=== PATIENT | female | born 1990 | race American Indian/Alaskan Native ===

== ENCOUNTER 2017-09-12 10:40 | Emergency (ER) | payer MEDICAID ==
--- NOTE | 2017-09-12 11:03 | Emergency Department Report ---
Chief Complaint: Abdominal Pain Stated Complaint: COLD AND ABD PAIN Time Seen by Provider: 09/12/17 11:00 - HPI History of Present Illness: 27-year-old with no prior medical history presents with lower pelvic, constant, nonradiating, 5/10 intensity pain. She reports last menstrual period was beginning of July 2017 blood pressure about the date. She denies taking medication. She denies fevers/chills/nausea/vomiting/abdominal pain/chest pain/shortness of breath sounds vaginal bleeding, dysuria, vaginal discharge. - ROS Review of Systems: As noted in HPI - Exam Vital Signs: Vital Signs 09/12/17 10:53 Temperature 97.3 F L Pulse Rate 86 Respiratory 16 Rate Blood Pressure 107/70 O2 Sat by Pulse 100 Oximetry Physical Exam: GENERAL: Alert and oriented x3, no apparent distress, Normal Gait, atraumatic. ABDOMEN: No organomegaly was noted,Positive bowel sounds, soft, and non- distended. Nontender to palpation on all Quadrants, NO CVA tenderness. BACK: Full range of motion, no spinal tenderness, nontender to palpation. SKIN: Warm and dry, No lesions, No ulceration or induration present. MSE screening note: Focused history and physical exam performed. Due to findings the following was ordered: ED Medical Decision Making - Medical Decision Making 19-year-old female in no acute distress Abdominal pain protocol ordered. Patient was seen by ED physician. ED Disposition for MSE Condition: Stable Instructions: Abdominal Pain (ED)
[2017-09-12 12:01] LABS: Basophils % (Auto) 0.6 % (0.0-1.8); Eosinophils % (Auto) 3.8 % (0.0-4.3); Hemoglobin 12.1 gm/dl (10.1-14.3); Mean Corpuscular HGB Conc 34 % (30-34); Mean Corpuscular Hemoglobin 32 pg (28-32); Mean Corpuscular Volume 94 fl (79-97); Platelet Count 213 K/mm3 (140-440); Red Blood Count 3.83 M/mm3 (3.65-5.03); Red Cell Distribution Width 13.2 % (13.2-15.2); White Blood Count 9.9 K/mm3 (4.5-11.0)
[2017-09-12 12:04] LABS: BUN/Creatinine Ratio 18; Blood Urea Nitrogen 7 mg/dL (7-17); Calcium 8.4 mg/dL (8.4-10.2); Carbon Dioxide 27 mmol/L (22-30); Glucose 89 mg/dL (65-100)
[2017-09-12 12:05] LABS: Alanine Aminotransferase 8 units/L (7-56); Albumin 3.7 g/dL (3.9-5); Albumin/Globulin Ratio 1.2 %; Alkaline Phosphatase 50 units/L (35-129); Anion Gap 13 mmol/L; Chloride 103.6 mmol/L (98-107); Lipase 20 units/L (13-60); Potassium 3.8 mmol/L (3.6-5.0); Sodium 140 mmol/L (137-145); Total Protein 6.8 g/dL (6.3-8.2)
[2017-09-12 12:14] LABS: Bilirubin,Urine NEG (Negative); Blood,Urine NEG (Negative); Ketones,Urine NEG (Negative); Leukocyte Esterase,Urine TR (Negative); Mucus,Urine FEW /HPF; Nitrite,Urine NEG (Negative)
--- NOTE | 2017-09-12 13:00 | Emergency Department Report ---
ED Abdominal Pain HPI - General Chief Complaint: Abdominal Pain Stated Complaint: COLD AND ABD PAIN Time Seen by Provider: 09/12/17 11:00 Source: patient Mode of arrival: Ambulatory Limitations: No Limitations - History of Present Illness Initial Comments: 27-year-old female with a past medical history of asthma presents to the hospital complaining of cold symptoms and suprapubic pain. Patient has had intermittent suprapubic pain described as sharp and feels like knots for the past 3 weeks. Pain is intermittent, moderate with no aggravating or alleviating factors. She denies dysuria, vaginal bleeding, or vaginal discharge. She is sexually active with one partner and uses condoms on occasion. Patient also complains of URI symptoms for 3 days which include dry cough, nasal congestion, and green nasal discharge. No facial pain, fever, shortness of breath, or chest pain reported. LMP early July documented at . Patient has 4 previous and has 4 children with no history of miscarriages, is topless, or voice Severity scale (0 -10): 0 - Related Data Previous Rx's Medication Instructions Recorded Last Taken Type Cyclobenzaprine [Flexeril 10mg] 10 mg PO TID PRN #10 tablet 12/28/14 Unknown Rx Ibuprofen [Motrin] 600 mg PO Q8H PRN #20 tablet 12/28/14 Unknown Rx Vit Calc,Iron,Folic 1 each PO DAILY #30 tablet 09/12/17 Unknown Rx [ Vitamins] Sodium Chloride [Saline Nasal 1 - 2 spray NS PRN PRN #1 bottle 09/12/17 Unknown Rx [place]] guaiFENesin [Robitussin] 200 mg PO Q6HR PRN #30 tablet 09/12/17 Unknown Rx metroNIDAZOLE [Flagyl] 500 mg PO Q12HR #14 tab 09/12/17 Unknown Rx Allergies Allergy/AdvReac Type Severity Reaction Status Date / Time Penicillins Allergy Anaphylaxis Verified 10/02/14 00:57 ED Review of Systems ROS: Stated complaint: COLD AND ABD PAIN Other details as noted in HPI Comment: All other systems reviewed and negative Other: Constitutional: No fevers chills Eyes: No eye pain visual changes ENT: No ear pain or throat pain Neck: Denies pain Respiratory: Denies cough wheezing shortness of breath Cardiovascular: Denies chest pain, palpitations, syncope GI: As per HPI : Denies dysuria Musculoskeletal: Denies back pain, joint swelling Skin: Denies rash, lesions, erythema Neurologic: Denies headache, numbness, weakness Psychiatric: Denies suicidal ideation, hallucinations ED Past Medical Hx - Past Medical History Previous Medical History?: Yes Hx Asthma: Yes - Surgical History Past Surgical History?: No - Social History Smoking Status: Current Every Day Smoker Substance Use Type: None - Medications Home Medications: Home Medications Medication Instructions Recorded Confirmed Last Taken Type Cyclobenzaprine [Flexeril 10mg] 10 mg PO TID PRN #10 tablet 12/28/14 Unknown Rx Ibuprofen [Motrin] 600 mg PO Q8H PRN #20 tablet 12/28/14 Unknown Rx Vit Calc,Iron,Folic 1 each PO DAILY #30 tablet 09/12/17 Unknown Rx [ Vitamins] Sodium Chloride [Saline Nasal 1 - 2 spray NS PRN PRN #1 bottle 09/12/17 Unknown Rx [place]] guaiFENesin [Robitussin] 200 mg PO Q6HR PRN #30 tablet 09/12/17 Unknown Rx metroNIDAZOLE [Flagyl] 500 mg PO Q12HR #14 tab 09/12/17 Unknown Rx ED Physical Exam - General Limitations: No Limitations - Other Other exam information: General: No limitations, patient is alert in no acute distress Head exam: Atraumatic, normocephalic Eyes exam: Normal appearance ENT: Moist mucous membrane, normal oropharynx Neck exam: Normal inspection, full range of motion, no meningismus nontender Respiratory exam: Clear to auscultation bilateral, no wheezes, rales, crackles Cardiovascular: Normal rate and rhythm, normal heart sounds Abdomen: Soft, nondistended, and nontender, with normal bowel sounds, no rebound, or guarding : Mild white vaginal discharge, no CMT or adnexal tenderness Extremity: Full range of motion normal inspection no deformity Back: Normal Inspection, full range of motion, no tenderness Neurologic: Alert, oriented x3, cranial nerves intact, no motor or sensory deficit Psychiatric: normal affect, normal mood Skin: Warm, dry, intact ED Course Vital Signs 09/12/17 09/12/17 09/12/17 10:53 12:08 12:10 Temperature 97.3 F L Pulse Rate 86 72 Respiratory 16 11 L 14 Rate Blood Pressure 107/70 O2 Sat by Pulse 100 100 100 Oximetry ED Medical Decision Making - Lab Data Result diagrams: 09/12/17:15 09/12/17 11:15 Lab Results 09/12/17 09/12/17 09/12/17 Range/Units 11:15 11:15 11:15 WBC 9.9 (4.5-11.0) K/mm3 RBC 3.83 (3.65-5.03) M/mm3 Hgb 12.1 (10.1-14.3) gm/dl Hct 36.0 (30.3-42.9) % MCV 94 (79-97) fl MCH 32 (28-32) pg MCHC 34 (30-34) % RDW 13.2 (13.2-15.2) % Plt Count 213 (140-440) K/mm3 Lymph % (Auto) 17.5 (13.4-35.0) % [place] % (Auto) 7.3 (0.0-7.3) % Eos % (Auto) 3.8 (0.0-4.3) % Baso % (Auto) 0.6 (0.0-1.8) % Lymph # 1.7 (1.2-5.4) K/mm3 [place] # 0.7 (0.0-0.8) K/mm3 Eos # 0.4 (0.0-0.4) K/mm3 Baso # 0.1 (0.0-0.1) K/mm3 Seg Neutrophils % 70.8 H (40.0-70.0) % Seg Neutrophils # 7.0 (1.8-7.7) K/mm3 Sodium 140 (137-145) mmol/L Potassium 3.8 (3.6-5.0) mmol/L Chloride 103.6 (98-107) mmol/L Carbon Dioxide 27 (22-30) mmol/L Anion Gap 13 mmol/L BUN 7 (7-17) mg/dL Creatinine 0.4 L (0.7-1.2) mg/dL Estimated GFR > 60 ml/min BUN/Creatinine Ratio 18 % Glucose 89 (65-100) mg/dL Calcium 8.4 (8.4-10.2) mg/dL Total Bilirubin 0.20 (0.1-1.2) mg/dL AST 13 (5-40) units/L ALT 8 (7-56) units/L Alkaline Phosphatase 50 (35-129) units/L Total Protein 6.8 (6.3-8.2) g/dL Albumin 3.7 L (3.9-5) g/dL Albumin/Globulin Ratio 1.2 % Lipase 20 (13-60) units/L HCG, Qual Positive (Negative) HCG, Quant (0-4) mIU/mL Urine Color (Yellow) Urine Turbidity (Clear) Urine pH (5.0-7.0) Ur Specific [place] (1.003-1.030) Urine Protein (Negative) mg/dL Urine Glucose (UA) (Negative) mg/dL Urine Ketones (Negative) mg/dL Urine Blood (Negative) Urine Nitrite (Negative) Urine Bilirubin (Negative) Urine Urobilinogen (<2.0) mg/dL Ur Leukocyte Esterase (Negative) Urine WBC (Auto) (0.0-6.0) /HPF Urine RBC (Auto) (0.0-6.0) /HPF U Epithel Cells (Auto) (0-13.0) /HPF Urine Mucus /HPF 09/12/17 09/12/17 Range/Units 11:15 11:35 WBC (4.5-11.0) K/mm3 RBC (3.65-5.03) M/mm3 Hgb (10.1-14.3) gm/dl Hct (30.3-42.9) % MCV (79-97) fl MCH (28-32) pg MCHC (30-34) % RDW (13.2-15.2) % Plt Count (140-440) K/mm3 Lymph % (Auto) (13.4-35.0) % [place] % (Auto) (0.0-7.3) % Eos % (Auto) (0.0-4.3) % Baso % (Auto) (0.0-1.8) % Lymph # (1.2-5.4) K/mm3 [place] # (0.0-0.8) K/mm3 Eos # (0.0-0.4) K/mm3 Baso # (0.0-0.1) K/mm3 Seg Neutrophils % (40.0-70.0) % Seg Neutrophils # (1.8-7.7) K/mm3 Sodium (137-145) mmol/L Potassium (3.6-5.0) mmol/L Chloride (98-107) mmol/L Carbon Dioxide (22-30) mmol/L Anion Gap mmol/L BUN (7-17) mg/dL Creatinine (0.7-1.2) mg/dL Estimated GFR ml/min BUN/Creatinine Ratio % Glucose (65-100) mg/dL Calcium (8.4-10.2) mg/dL Total Bilirubin (0.1-1.2) mg/dL AST (5-40) units/L ALT (7-56) units/L Alkaline Phosphatase (35-129) units/L Total Protein (6.3-8.2) g/dL Albumin (3.9-5) g/dL Albumin/Globulin Ratio % Lipase (13-60) units/L HCG, Qual (Negative) HCG, Quant 42493 H (0-4) mIU/mL Urine Color Yellow (Yellow) Urine Turbidity Clear (Clear) Urine pH 6.0 (5.0-7.0) Ur Specific [place] 1.033 H (1.003-1.030) Urine Protein 30 mg/dl (Negative) mg/dL Urine Glucose (UA) Neg (Negative) mg/dL Urine Ketones Neg (Negative) mg/dL Urine Blood Neg (Negative) Urine Nitrite Neg (Negative) Urine Bilirubin Neg (Negative) Urine Urobilinogen 4.0 (<2.0) mg/dL Ur Leukocyte Esterase Tr (Negative) Urine WBC (Auto) 3.0 (0.0-6.0) /HPF Urine RBC (Auto) 4.0 (0.0-6.0) /HPF U Epithel Cells (Auto) 2.0 (0-13.0) /HPF Urine Mucus Few /HPF Wet prep: Rare trichomonas. Less than 20 clue cells. No yeast. Gonorrhea and chlamydia pending - Radiology Data Radiology results: report reviewed Transvaginal/pelvic OB ultrasound: Single IUP 5 weeks 6 days. heart rate 98 beats per minute - Medical Decision Making Patient with be treated for Trichomonas. Conjunctivae and chlamydia pending. Partner will need treatment as well. Positive IUP identified. vitamins and OB follow-up will be in encouraged - Differential Diagnosis sinusitis, URI, pneumonia, bronchitis, UTI, , ectopic, cervicitis, Critical Care Time: No Critical care attestation.: If time is entered above; I have spent that time in minutes in the direct care of this critically ill patient, excluding procedure time. ED Disposition Clinical Impression: Trichomonas vaginitis, 5 weeks gestation of , URI (upper respiratory infection) Disposition: DC- TO HOME OR SELFCARE Is pt being admited?: No Does the pt Need Aspirin: No Condition: Stable Instructions: Trichomoniasis (ED), (ED), Upper Respiratory Infection (ED) Additional Instructions: Take the medication as prescribed. Your sexual partner will also need to be treated for Trichomonas. Your gonorrhea and chlamydia tests are pending and take approximately 3-4 days result. You may obtain results in medical records with a photo ID. You may also obtain results through the follow-up doctor office via medical record request.. Follow-up with the [facility] doctor provided with the [facility] doctor of your choice Prescriptions: guaiFENesin [Robitussin] 200 mg PO Q6HR PRN #30 tablet PRN Reason: Cough metroNIDAZOLE [Flagyl] 500 mg PO Q12HR #14 tab Vit Calc,Iron,Folic [ Vitamins] 1 each PO DAILY #30 tablet Sodium Chloride [Saline Nasal [place]] 1 - 2 spray NS PRN PRN #1 bottle PRN Reason: Nasal Congestion Referrals: CARLOS ANG MD [Staff Physician] - 3-5 Days ([facility]) Time of Disposition: 14:48
--- NOTE | 2017-09-12 14:35 | Ultrasound Report ---
OB ultrasound: Pelvic pain, positive hCG. Endovaginal and transabdominal imaging demonstrates an anteverted uterus measuring 5.3 x 7.5 x 7.9 cm. The myometrium is heterogeneous but no mass. There is an endometrial sac containing a yolk sac as well as a pole the latter measuring 2.6 mm in length. This is a correlate to a 5 week 6 day gestational age. There is heart motion of 98 beats per minute. No intrauterine complication noted. The left ovary measures 3.2 cm and contains a partially collapsed cyst measuring 15 mm. The right ovary measures 3.4 cm with a 2.3 cm cystic structure. No free fluid noted. Impressions: Viable, acuña IUP. No complication identified.
[2017-09-12 14:47] VITALS: BP 108/58
== END 2017-09-12 15:01 | disposition home or self-care (01) ==
LOC: ED 10:40
DX: O26.891 Other specified pregnancy related conditions, first trimester (principal); A59.01 Trichomonal vulvovaginitis; J06.9 Acute upper respiratory infection, unspecified; J45.909 Unspecified asthma, uncomplicated; F17.200 Nicotine dependence, unspecified, uncomplicated; Z88.0 Allergy status to penicillin; Z3A.01 Less than 8 weeks gestation of pregnancy
CPT/HCPCS: 36415; 76801; 76817; 80053; 81001; 83690; 84702; 84703; 85025; 87210; 87591

== ENCOUNTER 2018-04-23 07:58 | Inpatient (IN) | payer MEDICAID ==
[2018-04-23] MEDS ORDERED: PITOCin/NS 20 UNIT/1000ML DRIP 20,000 MILLIUNITS/1,000 ML BAG IV ONE (08:11)
[2018-04-23] MEDS ORDERED: CLEOCIN 900 MG/50 mL 900 MG/50 ML BAG IV ONE (08:12)
[2018-04-23] MEDS ORDERED: LACTATED RINGERS 1,000 ML ONE (08:18)
[2018-04-23] MEDS ORDERED: SUBLIMAZE ONE (08:23)
[2018-04-23] MEDS: CLEOCIN 900 MG/50 mL 900 MG/50 ML BAG IV SCH (08:25)
[2018-04-23] MEDS: PITOCin/NS 20 UNIT/1000ML DRIP 20 UNITS/1,000 ML BAG IV SCH ×2 (09:00→11:10)
[2018-04-23] MEDS ORDERED: BRETHINE IVP PRN (09:16)
[2018-04-23] MEDS ORDERED: XYLOCAINE 2% INFILTRATI ONE (09:16)
[2018-04-23] MEDS ORDERED: ePHEDrine SULFATE IV PRN (09:16)
[2018-04-23] MEDS ORDERED: BRETHINE SUB-Q PRN (09:16)
[2018-04-23] MEDS ORDERED: MINERAL OIL PO PRN (09:16)
--- NOTE | 2018-04-23 09:25 | History and Physical Report ---
History of Present Illness Date of examination: 04/23/18 Date of admission: 04/23/18 08:13 Chief complaint: Contractions History of present illness: 28yo G 5 P 4 0 0 4 at 38 weeks 2 days here with c/o contractions since 2-3am. She reports positive FMs but denies VB or LOF. She is a [employer] patient. No records are currently available. She denies any medical problems or complications this . GBS unknown. Past History Past Medical History: no pertinent history Past Surgical History: no surgical history Family/Genetic History: none Social history: lives with family, full code - Obstetrical History Expected Date of Delivery: 05/05/18 Actual Gestation: 38 Week(s) 2 Day(s) : 5 Para: 4 Hx # Term Pregnancies: 4 Number of Pregnancies: 0 Spontaneous Abortions: 0 Induced : 0 Number of Living Children: 4 Medications and Allergies Allergies Allergy/AdvReac Type Severity Reaction Status Date / Time Penicillins Allergy Anaphylaxis Verified 10/02/14 00:57 Home Medications Medication Instructions Recorded Confirmed Last Taken Type Ibuprofen [Motrin] 600 mg PO Q8H PRN #20 tablet 12/28/14 04/23/18 Unknown Rx Review of Systems All systems: negative - Vital Signs Vital signs: Vital Signs Pulse BP 75 133/68 04/23/18 09:08 04/23/18 09:08 Temp Pulse Resp BP Pulse Ox 71 133/71 04/23/18 09:23 04/23/18 09:23 - Physical Exam Genitourinary (Female): Negative: perineal/vulvar lesions Vulva: both: normal Vagina: Positive: normal moisture Uterus: Positive: normal size, normal contour Extremities: Positive: normal - Obstetrical FHR: auscultation normal, category 1 FHR comments: baseline 120, moderate variability, + accels, no decels Cervical Dilatation: 10 Cervical Effacement Percentage: 100 station: 0 Uterine Contraction Pattern: Regular Results Result Diagrams: 04/23/18 09:54 All other labs normal. Assessment and Plan - Patient Problems (1) 38 weeks gestation of Current Visit: Yes Status: Acute (2) Active labor at term Current Visit: Yes Status: Acute Plan to address problem: Admit to L&D with routine labor orders Start antibiotics for GBS prophylaxis Anticipate vaginal delivery
--- NOTE | 2018-04-23 09:30 | Procedure Note ---
OB Delivery Note - Delivery Date of Delivery: 04/23/18 Surgeon: FILIPE ANDERSEN (CNM) Estimated blood loss: other (150cc) - Vaginal Delivery presentation: vertex Delivery position: OA Intrapartum events: precipitous labor- <3hr Delivery induction: none Delivery monitor: external FHT, external uterine Route of delivery: Delivery placenta: spontaneous (09:03) Delivery cord: 3 umbilical vessels Episiotomy: none Delivery laceration: none Anesthesia: none Delivery comments: of a vigorous term 6 lbs 2 oz male on 04/23/18 @ 08:58. Cord blood collected. Spont delv of placenta, Sara-side presenting at 09:03. Small lochia present. Fundal massage and IV Pitocin bolus initiated. Fundus F/ML/U. Placenta intact. No lacerations present. Perineum intact. Mom and baby in stable condition. - Infant A at 1 minute: 8 at 5 minutes: 9 Infant Gender: Male (6 lbs 2 oz (2769 gm); 18.5 in)
[2018-04-23] MEDS ORDERED: ZOFRAN IV PRN (09:32)
[2018-04-23] MEDS ORDERED: LANSINOH TP PRN (09:32)
[2018-04-23] MEDS ORDERED: DULCOLAX PR PRN (09:32)
[2018-04-23] MEDS ORDERED: MILK OF MAGNESIA PO PRN (09:32)
[2018-04-23] MEDS ORDERED: TUCKS PAD TP PRN (09:32)
[2018-04-23] MEDS ORDERED: BENADRYL PO PRN (09:32)
[2018-04-23] MEDS ORDERED: PHENERGAN PO PRN (09:32)
[2018-04-23] MEDS ORDERED: TYLENOL PO PRN (09:32)
[2018-04-23] MEDS ORDERED: NORCO 5/325 PO PRN (09:32)
[2018-04-23] MEDS ORDERED: PHENERGAN PR PRN (09:32)
[2018-04-23] MEDS ORDERED: LACTATED RINGERS 1,000 ML IV SCH (10:00)
[2018-04-23] MEDS ORDERED: SODIUM CHLORIDE FLUSH SYRINGE 10 ML IV SCH (10:00)
[2018-04-23 11:07] LABS: Hematocrit 30.5 % (30.3-42.9); Hemoglobin 9.5 gm/dl (10.1-14.3); Mean Corpuscular HGB Conc 31 % (30-34); Mean Corpuscular Volume 82 fl (79-97); Platelet Count 195 K/mm3 (140-440); Red Blood Count 3.73 M/mm3 (3.65-5.03); Red Cell Distribution Width 15.4 % (13.2-15.2)
[2018-04-23 11:09] LABS: Mean Corpuscular Hemoglobin 26 pg (28-32)
[2018-04-23] MEDS: MOTRIN PO SCH ×2 (11:40→18:40)
[2018-04-23] MEDS: PRENATAL VITAMIN PO SCH (15:51)
[2018-04-23 22:21] LABS: Hematocrit 27.4 % (30.3-42.9); Hemoglobin 8.5 gm/dl (10.1-14.3)
[2018-04-24] MEDS: MOTRIN PO SCH ×2 (00:12→05:30)
[2018-04-24] MEDS: CLEOCIN 900 MG/50 mL 900 MG/50 ML BAG IV SCH (00:24)
[2018-04-24] MEDS: PRENATAL VITAMIN PO SCH (09:24)
--- NOTE | 2018-04-24 09:55 | Progress Note ---
Assessment and Plan A: PPD#1 s/p Bottlefeeding Stable Desires discharge home today P: Routine PP care Encouraged ambulation in room Anticipate discharge today pending peds Subjective - Subjective Date of service: 04/24/18 Principal diagnosis: s/p Patient reports: appetite normal, voiding normally, pain well controlled, flatus , ambulating normally : doing well, bottle feeding Objective - Vital Signs Latest vital signs: Vital Signs Temp Pulse Resp BP BP Pulse Ox 04/24/18 08:59 97.9 F 58 L 18 114/64 04/24/18 05:30 20 04/24/18 00:12 18 04/24/18 00:02 98.1 F 61 16 109/68 99 04/23/18 20:20 98.1 F 60 16 122/74 100 04/23/18 16:59 98.2 F 58 L 20 106/67 100 04/23/18 14:00 97.8 F 55 L 12 133/78 100 04/23/18 13:35 98 F 16 04/23/18 13:23 58 L 126/62 04/23/18 13:10 68 130/83 04/23/18 12:38 58 L 143/80 04/23/18 12:23 58 L 145/69 04/23/18 12:08 72 121/75 04/23/18 11:53 59 L 124/75 04/23/18 11:38 56 L 135/92 04/23/18 10:50 98.3 F 18 04/23/18 10:38 63 120/73 04/23/18 10:23 59 L 119/69 04/23/18 10:08 58 L 116/66 Intake and Output 04/23/18 04/24/18 04/24/18 23:59 07:59 15:59 Intake Total 520 240 Output Total 3 1 Balance 517 239 Intake: Oral 520 240 Output: Urine 3 1 Void 3 1 Other: Total, Intake Amount 520 240 Total, Output Amount 3 1 # Voids Void 1 # Bowel Movements 0 - Exam Breasts: Present: normal Cardiovascular: Present: Regular rate, Normal S1, Normal S2 Lungs: Present: Clear to auscultation, Normal air movement Abdomen: Present: normal appearance, soft, normal bowel sounds. Absent: distention Vulva: both: normal Uterus: Present: firm, fundal height below umbilicus (-1) Extremities: Present: normal Deep Tendon Reflex Grade: Normal +2 - Labs Labs: Abnormal lab results 04/23/18 04/23/18 Range/Units 09:54 21:54 WBC 13.4 H (4.5-11.0) K/mm3 Hgb 9.5 L 8.5 L (10.1-14.3) gm/dl Hct 27.4 L (30.3-42.9) % MCH 26 L (28-32) pg RDW 15.4 H (13.2-15.2) %
[2018-04-24] MEDS ORDERED: DEPO-PROVERA (CONTRACEPTION) IM ONE (09:56)
--- NOTE | 2018-04-24 09:56 | Discharge Summary ---
Providers - Providers Date of Admission: 04/23/18 18:27 Date of discharge: 04/24/18 Attending physician: RENU GILLIS MD Primary care physician: ERNU GILLIS MD Hospitalization Reason for admission: active labor, IUP at term Delivery: Procedure details: See delivery note Episiotomy: none Laceration: none Other procedures: none complications: none Discharge diagnosis: IUP at term delivered [place] baby: male Condition at discharge: Good Disposition: DC-01 TO HOME OR SELFCARE Plan - Provider Discharge Summary Activity: routine, no sex for 6 weeks, no heavy lifting 4 weeks, no strenuous exercise Diet: routine Instructions: routine Additional instructions: [] Smoking cessation referral if applicable(refer to patient education folder for contact #) [] Refer to [facility] Booklet Call your doctor immediately for: * Fever > 100.5 * Heavy vaginal bleeding ( >1 pad per hour) * Severe persistent headache * Shortness of breath * Reddened, hot, painful area to leg or breast * Drainage or odor from incision. * Keep incision clean and dry at all times and follow doctor's instructions regarding bathing/showering - Follow up plan Follow up: RENU GILLIS MD [Primary Care Provider] - 6 Weeks
[2018-04-24 13:32] VITALS: BP 112/70
== END 2018-04-24 12:00 | disposition home or self-care (01) | DRG 775 ==
LOC: TRG 07:58 → UNDOADMIN 08:13 → LD 08:13 → TRG 08:13 → OB 14:04 → LD 14:04 → OB 18:27 → EEVIPCON 18:27 → OB 18:55
PROVIDERS: ADMIT Obstetrics & Gynecology; ATTEND Obstetrics & Gynecology
PROC: 10E0XZZ Delivery of Products of Conception, External Approach (ICD-10-PCS; principal; 2018-04-23)
DX: O62.3 Precipitate labor (principal); Z3A.38 38 weeks gestation of pregnancy; Z37.0 Single live birth; Z88.0 Allergy status to penicillin
CPT/HCPCS: 36415; 85014; 85018; 85027; 86592; 86850; 86900; 86901; J2590; J3010; J7120